=== PATIENT | male | born 1950 | race Caucasian/White ===

== ENCOUNTER 2019-11-19 07:28 | Outpatient (CLI) | payer OTHER, SELFPAY ==
--- NOTE | ~2019-11-19 | US_ITS ---
EXAMINATION: US right upper quadrant EXAM DATE: 11/19/2019 08:02 INDICATION: Flank pain. TECHNIQUE: Multiple grayscale and Doppler images of the abdomen right upper quadrant were obtained (b y a technologist who performed the scan) and subsequently reviewed. There is no prior study for howard cadena. FINDINGS: The pancreatic head and body are normal in appearance. The pancreatic tail is not visualized. The l iver has normal echogenicity and contour. There are no focal liver lesions identified. There is no evidence of intrahepatic biliary duct dilation. Portal venous flow was seen in the hepatopedal, nor mal direction and has normal Doppler waveform. No right-sided hydronephrosis. Common bile duct measures 3-4 mm, which is normal. The gallbladder wall is normal in thickness, with expected amount of distention. No sonographic evidence of pericholecystic fluid. There is no cholel ithiases. Technologist performing exam reports patient did not demonstrate sonographic Cooper's sign. Please note that this sign is less reliable in patients who have received pain medication. IMPRESSION: 1. Unremarkable abdominal ultrasound exam. Reviewed, dictated and finalized at location B. [employer] BUFFING MACHINE OPERATOR
== END 2019-11-19 07:29 | disposition home or self-care (01) ==
PROVIDERS: PCP Internal Medicine; Visit Provider Internal Medicine
DX: R10.9 Unspecified abdominal pain (principal)
CPT/HCPCS: 76705

== ENCOUNTER 2020-03-29 06:09 | Outpatient (CLI) | payer OTHER, SELFPAY ==
[2020-03-29 17:27] LABS: SARS-CoV-2 RNA PCR Negative
== END 2020-03-29 06:10 | disposition home or self-care (01) ==
LOC: ANHCOVIDDT 06:09
PROVIDERS: PCP Internal Medicine; Visit Provider Internal Medicine Gastroenterology
DX: Z01.812 Encounter for preprocedural laboratory examination (principal); Z11.59 Encounter for screening for other viral diseases
CPT/HCPCS: 87635; C9803; U0003

== ENCOUNTER 2020-04-01 02:15 | Day surgery (SDC) | payer OTHER, SELFPAY ==
[2020-03-24 13:52] VITALS: BMI 30.2
[2020-04-01 06:22] VITALS: BP 132/72; PULSE 52; RESP 17; TEMP 36.9; O2SAT 97
[2020-04-01] MEDS: LACTATED RINGERS 1,000 ML 150 ML IV CONT (06:33)
--- NOTE | 2020-04-01 07:23 | P.PNAN_ITS ---
Anes - Initial Pre Proc Eval Procedure: Operation Date: 04/01/20 07:30 Proposed Procedures p Screening Colonoscopy - Perez Hazel MD Date/Time: 04/01/20 07:23 Surgeon: Perez Hazel MD Pre Op Diagnosis: neoplasm screening Patient Data Age: 70 Gender: M Height: 5 ft 6 in Weight: 88.9 kg Last Vital Signs Temp 98.5 F 04/01/20 06:22 Pulse 52 L 04/01/20 06:22 Resp 17 04/01/20 06:22 BP 132/72 04/01/20 06:22 Pulse Ox 97 04/01/20 06:22 Allergies Allergy/AdvReac Type Severity Reaction Status Date / Time No Known Allergies Allergy Unverified 04/01/20 06:17 Home Medications Medication Instructions Recorded Confirmed Type aspirin [Aspirin Low Dose] 81 mg PO DAILY 04/01/20 04/01/20 History ibuprofen 200 mg PO Q6H PRN 04/01/20 04/01/20 History metoprolol succinate 25 mg PO DAILY 04/01/20 04/01/20 History rosuvastatin [Crestor] 5 mg PO DAILY 04/01/20 04/01/20 History Patient hx anesthesia problems: none Family hx anesthesia problems: none [facility] Past Medical History Medical History (Updated 04/01/20 @ 07:23 by Fermin Pacheco MD) Asthma CAD (coronary artery disease) Hyperlipidemia Hypertension Surgical History Surgical History (Updated 04/01/20 @ 07:23 by Fermin Pacheco MD) S/P CABG (coronary artery bypass graft) Anes - Eval Final PreProcedure Day of Procedure 04/01/20 07:23 Patient weight: overweight Heart: regular rate and rhythm Lungs: clear to auscultation Airway: Mallampati scale class II Neurological: alert and oriented Last oral intake: >/= 8 hours ASA classification: III Emergent: no Anesthetic plan: proceed Anesthesia type and monitoring: general GIVS and standard monitoring Informed Consent: The patient's anesthetic plan and its attendant risks and benefits were discussed with the patient/family/POA. Questions were solicited and answers provided to the satisfaction of the patient/family/POA.
--- NOTE | 2020-04-01 07:27 | PM.HPGS ---
History of Present Illness History of Present Illness Consent: Risks, benefits, and alternatives have been discussed and questions answered. Patient agrees to proceed with procedure. Chief complaint: neoplasm screening Narrative: Fei Sheets is a 70 year old male here for screening colonoscopy, last one 10 years ago Review of Systems Constitutional: Constitutional: Denies headache(s) and Denies weakness Eyes: Eyes: Denies blurry vision ENT: Reports Normal hearing present, Denies headache(s) and Denies neck pain Cardiovascular: Cardiovascular: Denies chest pain and Denies dyspnea Respiratory: Respiratory: Denies dyspnea Gastrointestinal: Gastrointestinal: Reports no additional gastrointestinal complaints Genitourinary: Genitourinary: Denies dysuria Musculoskeletal: Musculoskeletal: Denies neck pain Integumentary/Breasts: Skin/Breast: Denies dry skin Neurologic: Reports Normal hearing present, Denies headache(s) and Denies weakness Psychiatric: Psychiatric: Denies anxiety Endocrine: Endocrine: Denies change in body appearance Hematologic/Lymphatic: Hematologic/Lymphatic: Denies easy bleeding Allergic/Immunologic: Allergic/Immunologic: Denies urticaria PMFSH Past Medical History Medical History (Updated 04/01/20 @ 07:29 by Perez Hazel MD) Asthma CAD (coronary artery disease) Colon cancer screening Hyperlipidemia Hypertension Surgical History Surgical History (Updated 04/01/20 @ 07:23 by Fermin Pacheco MD) S/P CABG (coronary artery bypass graft) Meds Home Medications and Allergies Home Medications Medication Instructions Recorded Confirmed Type aspirin [Aspirin Low Dose] 81 mg PO DAILY 04/01/20 04/01/20 History ibuprofen 200 mg PO Q6H PRN 04/01/20 04/01/20 History metoprolol succinate 25 mg PO DAILY 04/01/20 04/01/20 History rosuvastatin [Crestor] 5 mg PO DAILY 04/01/20 04/01/20 History Allergies Allergy/AdvReac Type Severity Reaction Status Date / Time No Known Allergies Allergy Unverified 04/01/20 06:17 Vital Signs Vital Signs - 24 hr 04/01/20 06:22 Temperature 98.5 F Pulse Rate 52 L Respiratory Rate 17 Blood Pressure 132/72 Pulse Oximetry 97 Exam Const: General: comfortable and no acute distress HENMT: General nose exam: Normal nares present Eyes: General: appearance normal, both eyes and all related structures Neck: Neck: no JVD Resp: Auscultation: clear to auscultation bilaterally Cardio: Rate: regular rate Rhythm: regular rhythm GI: Inspection: non-distended GI Palp: Yes Soft to palpation Skin: General skin exam: normal color Neuro: General: gait normal Speech: normal speech Extrem: General: normal to inspection Psych: Mental Status: mental status grossly normal Assessment and Plan Assessment and plan (1) Colon cancer screening: Code(s): Z12.11 - Encounter for screening for malignant neoplasm of colon Status: Acute Assessment and Plan: will proceed with colonoscopy (2) Asthma: Code(s): J45.909 - Unspecified asthma, uncomplicated Status: Acute (3) Hypertension: Code(s): I10 - Essential (primary) hypertension Status: Acute
[2020-04-01 07:53] VITALS: BP 116/56; PULSE 51; RESP 19; O2SAT 97
[2020-04-01 08:03] VITALS: BP 107/54; PULSE 50; RESP 16; O2SAT 97
[2020-04-01 08:13] VITALS: BP 128/67; PULSE 48; RESP 20; O2SAT 99
== END 2020-04-01 08:26 | disposition home or self-care (01) ==
PROVIDERS: PCP Internal Medicine; Visit Provider Internal Medicine Gastroenterology
PROC: 0DJD8ZZ Inspection of Lower Intestinal Tract, Via Natural or Artificial Opening Endoscopic (ICD-10-PCS; CPT 45378; principal; 2020-04-01 07:30)
DX: Z12.11 Encounter for screening for malignant neoplasm of colon (principal); D12.0 Benign neoplasm of cecum; K63.5 Polyp of colon; I10 Essential (primary) hypertension; E78.5 Hyperlipidemia, unspecified; I25.10 Atherosclerotic heart disease of native coronary artery without angina pectoris; J45.909 Unspecified asthma, uncomplicated; Z79.82 Long term (current) use of aspirin; Z95.1 Presence of aortocoronary bypass graft
CPT/HCPCS: 45380; 45385; 88305; J2704; J7120

== ENCOUNTER 2022-09-03 14:07 | Emergency (ER) | payer OTHER, SELFPAY ==
--- NOTE | 2022-09-03 14:33 | ED.EAR ---
HPI - Ear Problem General Chief complaint: Ear Stated complaint: rt/lt ear hearing loss Time Seen by Provider: 09/03/22 14:30 Source: patient, family, RN notes reviewed and old records reviewed Mode of arrival: ambulatory Limitations: no limitations History of Present Illness HPI Narrative: 72 year old male accompanied by presents to express care with complaints of bilateral ears feeling clogged and with decreased hearing for the past 3 days. Patient reports that he had cold symptoms last week with some continued nasal drainage and sinus pressure, denies any fevers chills or sweats or any body aches. Patient reports no acute cough or any shortness of breath, patient reports history of asthma and COPD, was former smoker. MD Complaint: decreased hearing and other (ear pressure, sinus drainage, sinus pressure) Location: bilateral Duration: constant Discharge from ear: Reports no Treatment prior to arrival: oral analgesic Related Data Home Medications Medication Instructions Recorded Confirmed aspirin 81 mg tablet,delayed 81 mg PO DAILY 04/01/20 09/03/22 release (Niranjan Low Dose Aspirin) ibuprofen 200 mg tablet 200 mg PO Q6H PRN Pain 04/01/20 09/03/22 metoprolol succinate 25 mg 25 mg PO DAILY 04/01/20 09/03/22 tablet,extended release 24 hr rosuvastatin 5 mg tablet (Crestor) 5 mg PO DAILY 04/01/20 09/03/22 Allergies Allergy/AdvReac Type Severity Reaction Status Date / Time No Known Allergies Allergy Verified 09/03/22 14:20 Review of Systems Review of Systems: CONSTITUTIONAL: Denies fever, chills, or sweats. EYES: Denies visual changes, redness, or discharge. ENT: Positive for rhinorrhea, congestion,no sore throat, bilateral ear pressure with decreased hearing CARDIOVASCULAR: Denies chest pain, palpitations, or edema. RESPIRATORY: Denies cough or dyspnea. GASTROINTESTINAL: Denies abdominal pain, nausea, vomiting, or diarrhea. GENITOURINARY: Denies dysuria or hematuria. SKIN: Denies rash or itching. MUSCULOSKELETAL: Denies back pain, joint pain, or myalgia. NEUROLOGIC: Denies headache, numbness, or weakness. PSYCHIATRIC: Denies anxiety or depression. All systems reviewed & are unremarkable except as noted in HPI and below PMFSH Past Medical History Medical History (Updated 09/08/22 @ 11:32 by Inez Cotton NP) Asthma CAD (coronary artery disease) Colon cancer screening Hyperlipidemia Hypertension Myocardial infarction 2018 Surgical History Surgical History (Updated 09/08/22 @ 11:31 by Inez Cotton NP) S/P CABG (coronary artery bypass graft) S/P rotator cuff repair Family History Family History (Updated 09/08/22 @ 11:31 by Inez Cotton NP) Sibling Hypertension Social History Social History (Updated 09/08/22 @ 11:30 by Inez Cotton NP) Smoking status: Former smoker Alcohol intake: current Alcohol use details: social Substance use: never Gender identity (if verbalized by the patient): Male Comments At time of signature, agree with nursing past medical, surgical, social and family history. There is no relevant family history pertinent to the presenting complaint Exam Narrative: GENERAL: Well-appearing, well-nourished, and in no acute distress. HEAD: Normocephalic, atraumatic. EYES: PERRLA and EOMI. ENT: Nares red and edematous, clear rhinorrhea no epistaxis. Mucous membranes moist.TM's with fluid noted and dull light reflex, throat pink with no lesions or swelling NECK: Supple. no lymphadenopathy CHEST: Clear to auscultation. No respiratory distress.SAO2 96% on room air HEART: Regular rate and rhythm. No murmur heard. Normal peripheral pulses. ABDOMEN: Soft, nontender, nondistended, normal active bowel sounds. EXTREMITIES: Normal range of motion. No edema. SKIN: Warm, dry, no rash. NEURO: No focal deficits. Alert and oriented x3. Course Course Emergency Course: Patient is aware of diagnosis, understands and agrees to treatment plan.? Anticipatory pal
[2022-09-03 14:46] VITALS: BP 148/77; PULSE 59; RESP 16; TEMP 36.9; O2SAT 96
== END 2022-09-03 15:00 | disposition home or self-care (01) ==
PROVIDERS: Emergency Provider Registered Nurse; PCP Internal Medicine
DX: J32.9 Chronic sinusitis, unspecified (principal); H69.93 Unspecified Eustachian tube disorder, bilateral; I25.10 Atherosclerotic heart disease of native coronary artery without angina pectoris; I10 Essential (primary) hypertension; E78.5 Hyperlipidemia, unspecified; J45.909 Unspecified asthma, uncomplicated; Z79.1 Long term (current) use of non-steroidal anti-inflammatories (NSAID); Z79.82 Long term (current) use of aspirin
CPT/HCPCS: 99213; G0463

== ENCOUNTER 2023-03-16 20:46 | Emergency (ER) | payer OTHER, SELFPAY ==
--- NOTE | ~2023-03-16 | XR_ITS ---
EXAMINATION: XR chest 2V Exam Date/Time: 03/16/2023 21:05 CDT HISTORY: CP WITH ELEVATED BLOOD PRESSURE X 2 DAYS Comparison: 06/22/2018. RESULT: Lines, tubes, and devices: Intact sternotomy wires. Lungs and pleura: No focal consolidation, effusion, or pneumothorax. Left mid and lower lung scar. C alcified pleural plaque. Cardiomediastinal silhouette: Stable. Other: No acute osseous or upper abdominal finding. Prior distal right clavicle excision. IMPRESSION: No acute cardiopulmonary process. Reviewed, dictated and finalized at location K.
--- NOTE | 2023-03-16 20:47 | ECG_ITS ---
Measurements Intervals [place] Rate: 70 P: 3 MD: 177 QRS: 57 QRSD: 98 T: 59 QT: 383 QTc: 415 Interpretive Statements SINUS RHYTHM WITH OCCASIONAL VENTRICULAR PREMATURE COMPLEXES RIGHTWARD AXIS POSSIBLE OLD INFERIOR [place] NO PREVIOUS ECG AVAILABLE FOR COMPARISON Electronically Signed On 03-17-2023 13:19:00 CDT by Selam Khan M.D.
[2023-03-16 20:48] VITALS: BP 164/97; PULSE 76; RESP 20; TEMP 36.6; O2SAT 97
[2023-03-16 21:14] LABS: Basophils Percent Auto 0.8 % (0.2-1.2); Eosinophils Absolute Auto 0.2 K/mm3 (0-0.3); Eosinophils Percent Auto 4.5 % (0-4.4); Hematocrit 46.8 % (42.0-52.0); Hemoglobin 16.2 g/dL (14.0-18.0); Immature Granulocyte Absolute 0.01 K/mm3 (0.00-0.031); Immature Granulocyte Percent A 0.2 % (0-0.5); Lymphocytes Percent Auto 26.3 % (18.3-44.2); Mean Corpuscular HGB Conc 34.6 g/dl (32-36); Mean Corpuscular Hemoglobin 30.9 pg (26-34); Mean Corpuscular Volume 89.1 fl (80-100); Mean Platelet Volume 10.7 fl (7.4-10.4); Monocytes Absolute Auto 0.4 K/mm3 (0.1-0.6); Monocytes Percent Auto 8.3 % (2.6-8.5); Neutrophils Percent Auto 59.9 % (45.5-73.1); Platelet Count Result 190 k/mm3 (150-375); Red Blood Count 5.25 M/mm3 (4.6-6.20); Red Cell Distribution Width 12.4 % (11.5-14.5); White Blood Count 4.9 K/mm3 (4.5-10.0)
[2023-03-16 21:24] LABS: Alanine Aminotransferase 26 U/L (6-50); Alkaline Phosphatase 67 U/L (38-126); Anion Gap 5 mmol/L (8-16); Aspartate Amino Transferase 28 U/L (17-59); Bilirubin,Total 0.8 mg/dL (0.2-1.3); Blood Urea Nitrogen 17 mg/dL (9-20); Calcium 8.6 mg/dL (8.4-10.2); Carbon Dioxide 29 mmol/L (22-30); Chloride 100 mmol/L (98-107); Estimated CRCL calculation 67 ml/min; Estimated Glomerular Filt Rate > 60; Glucose 136 mg/dL (65-110); Lipase 45 U/L (23-300); Potassium 3.9 mmol/L (3.4-5.0); Sodium 134 mmol/L (137-145)
[2023-03-16 21:28] LABS: Partial Thromboplastin Time 26.6 SECONDS (22.3-36.8); Prothrombin Time 13.5 Seconds (11.1-14.7)
[2023-03-16 21:36] LABS: Troponin I < 0.012 ng/mL (0.000-0.034)
[2023-03-16 21:59] VITALS: BP 129/62; PULSE 54; RESP 15; O2SAT 96
[2023-03-16 23:12] VITALS: PULSE 56
[2023-03-17 00:46] LABS: Troponin I < 0.012 ng/mL (0.000-0.034)
--- NOTE | 2023-03-17 00:56 | ED.GENADULT ---
HPI - General Adult General Chief complaint: Chest Pain Stated complaint: I had a moment of panic Time Seen by Provider: 03/16/23 21:33 History of Present Illness HPI narrative: this is a 73-year-old gentleman presenting ED after he had an episode of flushing and palpitations at 8:30 a.m.. He then took his blood pressure noticed that it was elevated. He became very concerned that he was having a heart attack and came to the hospital. His symptoms resolved when he arrived the hospital about 10-15 minutes later without intervention. He denies chest pain, shortness of breath, nausea vomiting diaphoresis or exertional component. He does say that last time he had a heart attack he did not feel chest pain. Related Data Home Medications Medication Instructions Recorded Confirmed aspirin 81 mg tablet,delayed 81 mg PO DAILY 04/01/20 09/03/22 release (Niranjan Low Dose Aspirin) ibuprofen 200 mg tablet 200 mg PO Q6H PRN Pain 04/01/20 09/03/22 metoprolol succinate 25 mg 25 mg PO DAILY 04/01/20 09/03/22 tablet,extended release 24 hr rosuvastatin 5 mg tablet (Crestor) 5 mg PO DAILY 04/01/20 09/03/22 Allergies Allergy/AdvReac Type Severity Reaction Status Date / Time No Known Allergies Allergy Verified 09/03/22 14:20 [facility] Past Medical History Medical History (Updated 03/17/23 @ 01:05 by Jhony Astudillo MD) Asthma CAD (coronary artery disease) Colon cancer screening Hyperlipidemia Hypertension Myocardial infarction 2018 Surgical History Surgical History (Updated 09/08/22 @ 11:31 by Inez Cotton NP) S/P CABG (coronary artery bypass graft) S/P rotator cuff repair Family History Family History (Updated 09/08/22 @ 11:31 by Inez Cotton NP) Sibling Hypertension Social History Social History (Updated 09/08/22 @ 11:30 by Inez Cotton NP) Smoking status: Former smoker Alcohol intake: current Alcohol use details: social Substance use: never Living arrangements: with family Gender identity (if verbalized by the patient): Male Exam Narrative: APPEARANCE: No apparent distress. Head: atraumatic. EYES: EOMI, NOSE: Atraumatic NECK: Trachea midline RESPIRATORY: No increased rate of breathing, clear to auscultation CARDIOVASCULAR: RRR, no peripheral edema ABDOMINAL: Non-distended MUSCULOSKELETAl: No obvious deformities NEURO: Alert. Moving 4/4 extremities SKIN:: Warm, dry. Normal color PSYCHIATRIC: Normal affect Course Vital Signs Vital signs: Vital Signs Temperature 98 F 03/16/23 20:48 Pulse Rate 76 03/16/23 20:48 Respiratory Rate 20 03/16/23 20:48 Blood Pressure 164/97 H 03/16/23 20:48 Pulse Oximetry 97 03/16/23 20:48 Oxygen Delivery Room Air 03/16/23 20:48 Temperature 98 F 03/16/23 20:48 Pulse Rate 54 L 03/16/23 21:59 Respiratory Rate 15 03/16/23 21:59 Blood Pressure 129/62 03/16/23 21:59 Pulse Oximetry 96 03/16/23 21:59 Oxygen Delivery Room Air 03/16/23 20:48 Medical Decision Making MDM Narrative Medical decision making narrative: -Presentation: 73-year-old male presenting with an episode of palpitations and elevated blood pressure. Is concerned that he is having heart attack. He is currently asymptomatic. -DDX includes but is not limited to: SVT, dysrhythmia, [place], anxiety -Co-morbidities complicating care: coronary artery disease, hypertension, COPD -Social determinants of health: patient is retired but still works occasional shifts his job. Lives with Lety -External Chart Review: None -Hx from independent Sources: at bedside -Discussion of Management/Consultants: none -Independent interpretation of studies: CBC normal. Metabolic panel normal. Troponins undetectable x2. Chest x-ray unremarkable. Independent EKG interpretation: Rhythm [sinus], Rate [70], [place] -[normal], [place] -[normal], QRS [narrow], QTC [normal], T waves -[negative for concerning inversions], ST Segments
== END 2023-03-17 01:16 | disposition home or self-care (01) ==
PROVIDERS: Emergency Medicine; Emergency Provider Emergency Medicine; PCP Internal Medicine
DX: I10 Essential (primary) hypertension (principal); I25.10 Atherosclerotic heart disease of native coronary artery without angina pectoris; I25.2 Old myocardial infarction; J45.909 Unspecified asthma, uncomplicated; E78.5 Hyperlipidemia, unspecified; Z95.1 Presence of aortocoronary bypass graft; Z87.891 Personal history of nicotine dependence; Z79.82 Long term (current) use of aspirin; I49.3 Ventricular premature depolarization; R94.31 Abnormal electrocardiogram [ECG] [EKG]
CPT/HCPCS: 36415; 71046; 80053; 83690; 84484; 85025; 85610; 85730; 93005; 99284

== ENCOUNTER 2025-08-13 00:54 | Day surgery (SDC) | payer OTHER, SELFPAY ==
[2025-08-02 14:40] VITALS: BMI 26.3
[2025-08-13 12:10] VITALS: BP 151/63; PULSE 59; RESP 16; TEMP 36.7; O2SAT 96; BMI 27.1
[2025-08-13] MEDS: LACTATED RINGERS 1,000 ML 150 ML IV CONT (12:29)
--- NOTE | 2025-08-13 12:44 | PM.HPGS ---
History of Present Illness History of Present Illness Consent: Risks, benefits, and alternatives have been discussed and questions answered. Patient agrees to proceed with procedure. Chief complaint: Screening Narrative: Fei Sheets is a 75 year old male with colon polyp in 2019 Review of Systems Review of Systems: All systems reviewed & are unremarkable except as noted in HPI and below PMFSH Past Medical History Medical History (Updated 08/13/25 @ 12:44 by Perez Hazel MD) Colon polyp Myocardial infarction 2018 Colon cancer screening Asthma Hypertension Hyperlipidemia CAD (coronary artery disease) Surgical History Surgical History (Updated 09/08/22 @ 11:31 by Inez Cotton APRN) S/P rotator cuff repair S/P CABG (coronary artery bypass graft) Family History Family History (Updated 09/08/22 @ 11:31 by Inez Cotton APRN) Sibling Hypertension Social History Social History (Updated 09/08/22 @ 11:30 by Inez Cotton APRN) Smoking packs per day: 3 Smoking cigarettes per day: 60.0 Smoking status: Former smoker Tobacco type: cigarettes Alcohol intake: current Drinks per week: 3 Alcohol use details: social Substance use: never Living arrangements: with family Gender identity (if verbalized by the patient): Male Spiritual care concerns: No Meds Home Medications and Allergies Home Medications ?Medication ?Instructions ?Recorded ?Confirmed ?Type aspirin 81 mg tablet,delayed 81 mg PO DAILY 04/01/20 08/13/25 History release (Niranjan Low Dose Aspirin) metoprolol succinate 25 mg 25 mg PO DAILY 04/01/20 08/13/25 History tablet,extended release 24 hr rosuvastatin 5 mg tablet (Crestor) 5 mg PO DAILY 04/01/20 08/13/25 History fluticasone propionate 50 1 spray intranasal DAILY #16 grams 09/03/22 08/13/25 Rx mcg/actuation nasal spray,suspension (Flonase Allergy Relief) fluticasone fur. 100 mcg-umeclid 1 inh inhalation DAILY 08/02/25 08/13/25 History 62.5 mcg-vilant 25 mcg inhalat.powder (Trelegy Ellipta) losartan 25 mg tablet 25 mg PO DAILY 08/02/25 08/13/25 History Allergies Allergy/AdvReac Type Severity Reaction Status Date / Time No Known Allergies Allergy Verified 08/13/25 12:13 Vital Signs Vital Signs - 24 hr 08/13/25 12:10 Temperature 98.1 F Pulse Rate 59 L Respiratory Rate 16 Blood Pressure 151/63 H Pulse Oximetry 96 Oxygen Delivery Room Air Exam Const: General: comfortable and no acute distress HENMT: Face/Nose/Sinus: Normal nares present Eyes: General: appearance normal, both eyes and all related structures Resp: Auscultation: clear to auscultation bilaterally Cardio: Rate: regular rate Rhythm: regular rhythm GI: Inspection: non-distended GI Palp: Yes Soft to palpation Skin: General skin exam: normal color Extrem: General: normal to inspection Psych: Mental Status: mental status grossly normal Assessment and Plan Assessment and plan (1) Colon polyp: Code(s): K63.5 - Polyp of colon Status: Acute Assessment and Plan: colonoscopy
--- NOTE | 2025-08-13 12:47 | WPDANESEPPF ---
Anes - Initial Pre Proc Eval Procedure: Operation Date: 08/13/25 13:00 Proposed Procedures p Screening Colonoscopy - Perez Hazel MD Date/Time: 08/13/25 12:47 Surgeon: Perez Hazel MD Pre Op Diagnosis: Screening Patient Data Age: 75 Gender: M Height: 1.68 m Weight: 76.2 kg Last Vital Signs Temp 98.1 F 08/13/25 12:10 Pulse 59 L 08/13/25 12:10 Resp 16 08/13/25 12:10 BP 151/63 H 08/13/25 12:10 Pulse Ox 96 08/13/25 12:10 O2 Del Method Room Air 08/13/25 12:10 Allergies Allergy/AdvReac Type Severity Reaction Status Date / Time No Known Allergies Allergy Verified 08/13/25 12:13 Home Medications ?Medication ?Instructions ?Recorded ?Confirmed ?Type aspirin 81 mg tablet,delayed 81 mg PO DAILY 04/01/20 08/13/25 History release (Niranjan Low Dose Aspirin) metoprolol succinate 25 mg 25 mg PO DAILY 04/01/20 08/13/25 History tablet,extended release 24 hr rosuvastatin 5 mg tablet (Crestor) 5 mg PO DAILY 04/01/20 08/13/25 History fluticasone propionate 50 1 spray intranasal DAILY #16 grams 09/03/22 08/13/25 Rx mcg/actuation nasal spray,suspension (Flonase Allergy Relief) fluticasone fur. 100 mcg-umeclid 1 inh inhalation DAILY 08/02/25 08/13/25 History 62.5 mcg-vilant 25 mcg inhalat.powder (Trelegy Ellipta) losartan 25 mg tablet 25 mg PO DAILY 08/02/25 08/13/25 History Patient hx anesthesia problems: none Family hx anesthesia problems: none Results Review: All pre-operative results and documents have been reviewed as part of the pre-operative evaluation. [facility] Past Medical History Medical History Colon polyp Myocardial infarction 2018 Colon cancer screening Asthma Hypertension Hyperlipidemia CAD (coronary artery disease) Surgical History Surgical History S/P rotator cuff repair S/P CABG (coronary artery bypass graft) Family History Family History Sibling Hypertension Social History Social History Smoking packs per day: 3 Smoking cigarettes per day: 60.0 Smoking status: Former smoker Tobacco type: cigarettes Alcohol intake: current Drinks per week: 3 Alcohol use details: social Substance use: never Living arrangements: with family Gender identity (if verbalized by the patient): Male Spiritual care concerns: No Anes - Eval Final PreProcedure Day of Procedure 08/13/25 12:47 Patient weight: normal Lungs: normal air movement Airway: Mallampati scale class II Neurological: alert and oriented Last oral intake: >/= 8 hours ASA classification: II Emergent: no Anesthetic plan: proceed Anesthesia type and monitoring: general GIVS and standard monitoring Results Review: All pre-operative results and documents have been reviewed as part of the pre-operative evaluation. HTN, hyperlipidemia. Informed Consent: The patient's anesthetic plan and its attendant risks and benefits were discussed with the patient/family/POA. Questions were solicited and answers provided to the satisfaction of the patient/family/POA.
--- NOTE | 2025-08-13 13:04 | S_PTH ---
PATIENT: Fei Sheets LOC: [facility]#:[id number] AGE/SX: 75/M ROOM: RE08/13/[address]: Perez Hazel MD : 1950 BED: DIS: 08/13/2025 SPEC #: [id number] RECD: 08/13/25 13:08 STATUS: KALPA[place] REPatricia #: [id number] PABLITO: 08/13/25 13:[address]: Perez Hazel DEPT: [facility] Surgical RECD BY: Naida Whitfield ENTERED: 08/13/25 13:08 SP TYPE: Surgical OTHR DR: Gregor DukeMD Tissues: A - Colon Polypectomy Procedures: Hematoxylin and Eosin Stain Gross and Microscopic Level 4
[2025-08-13 13:11] VITALS: BP 101/49; PULSE 55; RESP 16; O2SAT 96
[2025-08-13 13:21] VITALS: BP 120/58; PULSE 50; RESP 16; O2SAT 98
[2025-08-13 13:34] VITALS: BP 128/53; PULSE 59; RESP 16; O2SAT 99
== END 2025-08-13 13:41 | disposition home or self-care (01) ==
PROVIDERS: PCP Internal Medicine; Referring Provider Internal Medicine; Visit Provider Internal Medicine Gastroenterology
PROC: 0DJD8ZZ Inspection of Lower Intestinal Tract, Via Natural or Artificial Opening Endoscopic (ICD-10-PCS; CPT 45378; principal; 2025-08-13 13:00)
DX: Z12.11 Encounter for screening for malignant neoplasm of colon (principal); K63.5 Polyp of colon; K64.8 Other hemorrhoids; E78.5 Hyperlipidemia, unspecified; I10 Essential (primary) hypertension; J45.909 Unspecified asthma, uncomplicated; I25.10 Atherosclerotic heart disease of native coronary artery without angina pectoris; I25.2 Old myocardial infarction; Z79.82 Long term (current) use of aspirin; Z79.51 Long term (current) use of inhaled steroids; Z98.890 Other specified postprocedural states; Z95.1 Presence of aortocoronary bypass graft; Z87.891 Personal history of nicotine dependence
CPT/HCPCS: 45385; 88305; J2003; J2704; J7120